=== PATIENT | male | born 1955 | race Two or more races ===

== ENCOUNTER 2018-05-14 07:39 | Outpatient (CLI) | payer OTHER | END 2018-05-14 07:54 | disposition home or self-care (01) | LOC: NUCLEAR 07:39 → EDBD 07:39 → NUCLEAR 07:54 | DX: I70.0 Atherosclerosis of aorta (principal); I11.9 Hypertensive heart disease without heart failure; I73.9 Peripheral vascular disease, unspecified; M79.604 Pain in right leg ==

== ENCOUNTER 2021-03-31 08:45 | Outpatient (CLI) | payer OTHER | END 2021-03-31 08:46 | disposition home or self-care (01) | LOC: NUCLEAR 08:45 | PROVIDERS: ATTEND Internal Medicine Cardiovascular Disease | DX: Z95.1 Presence of aortocoronary bypass graft (principal) ==